=== PATIENT | male | born 1975 | race Caucasian/White ===

== ENCOUNTER → 2016-07-21 | Outpatient (CLI) | payer OTHER ==
--- NOTE | 2016-07-22 22:34 | SLEEPHOME ---
DATE OF PROCEDURE: 07/21/2016 ORDERED BY: Genoveva Collins Diagnostic home sleep testing was performed due to concern for the obstructive sleep apnea syndrome. Home testing was done using a NOX-T3 respiratory monitoring device. Continuous record was made of pulse, oxygen saturation, chest, abdominal strain, air flow and body position. 9 hours and 59 minutes of data were reviewed. Of these, 5 hours and 5 minutes were marked as time in bed. During the interval marked time in bed, there were 249 respiratory events identified of 10 seconds in duration or greater for a respiratory event index of 49. The events were primarily obstructive. Baseline heart rate 88, pulse rate ranged 63 to 176. Baseline saturation 93%. Lowest oxygen saturation 83%. Testing was performed in both the supine and nonsupine position. IMPRESSION: Abnormal home sleep testing with repetitive respiratory events and oxygen desaturations to 83% with a respiratory event index of 49 is consistent with the obstructive sleep apnea syndrome. RECOMMENDATION: The patient should be referred for formal sleep evaluation and in laboratory pressure titration. Copy To: Dr. Russell Miranda
== END | disposition home or self-care (01) ==
LOC: M SLEEP 09:13
PROVIDERS: ATTEND Nurse Practitioner Adult Health
DX: G47.9 Sleep disorder, unspecified (principal)

== ENCOUNTER → 2020-09-10 | Outpatient (CLI) | payer OTHER ==
[~2020-09-10] MED LIST: GASTROGRAFIN SOLUTION 30ML (Q9963) As Ordered ONE; ISOVUE-370 76% 100ML VIAL As Ordered ONE
--- NOTE | 2020-09-12 07:30 | REP ---
INDICATION: INCISIONAL HERNIA WITHOUT OBSTRUCTIO, ADRENAL MASS. COMPARISON: 06/06/2015 TECHNIQUE: Axial contrast-enhanced images from the lung bases to the pubic symphysis using 100 cc Isovue 370 intravenous contrast material. Precontrast and delayed images of the abdomen obtained along with coronal and sagittal reformations. This CT examination was performed using the following dose reduction techniques: Automated exposure control, adjustment of mA and/or kv according to the patient's size, and the use of iterative reconstruction technique. FINDINGS: The spleen, pancreas, gallbladder, right adrenal gland and kidneys are normal. 2.2 cm left adrenal lesion demonstrates enhancement and washout characteristics confirming adenoma. Liver demonstrates diffuse hepatosteatosis. Midline fat containing ventral hernia with small amount of subcutaneous infiltration and granulomatous changes suggesting chronic postsurgical process. No associated acute inflammatory changes are suggested. The enteric system including stomach, small, and large bowel appears normal. No evidence for obstruction or acute inflammatory process. Normal terminal ileum and appendix are identified in the right lower quadrant. Diffuse diverticulosis noted along with evidence for prior partial sigmoid resection. Pelvis demonstrates normal bladder and age-appropriate prostate/seminal vesicles. No ascites. No free air. No intraperitoneal or retroperitoneal adenopathy. Abdominal aorta and vasculature appear normal. Musculoskeletal structures are intact and without acute osseous abnormality. IMPRESSION: No acute abdominopelvic pathology appreciated. Benign left adrenal adenoma. Diverticulosis without acute diverticulitis. Postsurgical changes involving the midline anterior abdominal wall including small ventral hernia. <Electronically signed by Nestor Gilbert > 09/12/20 [id number]
== END ==
LOC: M RAD 15:26
PROVIDERS: ATTEND Surgery
DX: K43.2 Incisional hernia without obstruction or gangrene (principal); D44.10 Neoplasm of uncertain behavior of unspecified adrenal gland; D35.00 Benign neoplasm of unspecified adrenal gland
CPT/HCPCS: 74178; Q9963; Q9967

== ENCOUNTER → 2020-12-03 | Outpatient (CLI) | payer OTHER ==
[~2020-12-03] MED LIST changes: +AMLO1TAB25 PO; +ATOR40TA75 PO; -GASTROGRAFIN SOLUTION 30ML (Q9963) As Ordered ONE; -ISOVUE-370 76% 100ML VIAL As Ordered ONE; +OMEP-221 PO; +ZOLO100T PO
== END ==
LOC: M LABSMTC 09:34
PROVIDERS: ATTEND Anesthesiology
DX: Z01.818 Encounter for other preprocedural examination (principal); Z11.52 Encounter for screening for COVID-19

== ENCOUNTER 2020-12-05 13:21 | Inpatient (IN) | payer OTHER ==
[~2020-12-05] VITALS: Ht 172.7 cm; Wt 101.5 kg
[2020-12-05 14:38] LABS: HEMATOCRIT 42.9 % (42.0-52.0); HEMOGLOBIN 15.3 g/dl (13.5-17.5); MEAN CORPUSCULAR HEMOGLOBIN 30.7 pg (27.0-33.0); MEAN CORPUSCULAR HGB CONC 35.7 g/dl (32.0-36.5); PLATELET COUNT, AUTOMATED 258 10^3/uL (150-450); RED BLOOD COUNT 4.99 10^6/uL (4.30-6.10); WHITE BLOOD COUNT 10.9 10^3/uL (4.0-10.0)
[2020-12-05 14:57] LABS: ATYPICAL LYMPH 1 % (0-5); LYMPHOCYTES 23 % (16-44); MONOCYTES 1 % (0-5); NEUTROPHILS 72 % (28-66)
[2020-12-05 14:58] LABS: PLATELET ESTIMATE NORMAL (NORMAL)
[2020-12-05 15:03] LABS: ALBUMIN 3.9 GM/DL (3.2-5.2); ALT/SGPT 37 U/L (12-78); BILIRUBIN,DIRECT < 0.1 MG/DL (0.0-0.2); BILIRUBIN,TOTAL 0.5 MG/DL (0.2-1.0); BLOOD UREA NITROGEN 12 MG/DL (7-18); CALCIUM LEVEL 9.1 MG/DL (8.5-10.1); CARBON DIOXIDE LEVEL 25 MEQ/L (21-32); CHLORIDE LEVEL 102 MEQ/L (98-107); GLOMERULAR FILTRATION RATE > 60.0 (>60); GLUCOSE, FASTING 216 MG/DL (70-100); LIPASE 110 U/L (73-393); POTASSIUM SERUM 4.3 MEQ/L (3.5-5.1); SODIUM LEVEL 136 MEQ/L (136-145); TOTAL PROTEIN 7.9 GM/DL (6.4-8.2)
[2020-12-05] MEDS ORDERED: ISOVUE-370 76% 100ML VIAL As Ordered ONE (16:39)
[2020-12-05] MEDS ORDERED: NS 1,000 ML IV ONE (16:40)
[2020-12-05] MEDS ORDERED: KETOROLAC 30 MG/ML 1ML VIAL IV ONE (16:40)
[2020-12-05] MEDS ORDERED: PANTOPRAZOLE 40MG VIAL (C9113 PER 1) IV ONE (16:40)
--- NOTE | 2020-12-05 18:14 | REPVR ---
PROCEDURE INFORMATION: Exam: CT Abdomen And Pelvis With Contrast Exam date and time: 12/05/2020 5:08 PM Age: 45 years old Clinical indication: Abdominal pain; Additional info: Abdominal pain rlq/ hernias TECHNIQUE: Imaging protocol: Computed tomography of the abdomen and pelvis with contrast. Radiation optimization: All CT scans at this facility use at least one of these dose optimization techniques: automated exposure control; mA and/or kV adjustment per patient size (includes targeted exams where dose is matched to clinical indication); or iterative reconstruction. Contrast material: ISOVUE 370; Contrast volume: 100 ml; Contrast route: INTRAVENOUS (IV); COMPARISON: CT ABD PELVIS W/O FOL BY WIT 09/10/2020 5:12 PM FINDINGS: Liver: Diffuse hepatic steatosis. Tiny cyst in the left hepatic lobe, unchanged. Gallbladder and bile ducts: Unremarkable. No calcified stones. No ductal dilation. Pancreas: Unremarkable. No ductal dilation. Spleen: Unremarkable. No splenomegaly. Adrenal glands: Left adrenal adenomas, unchanged. Unchanged appearance to the right adrenal gland. Kidneys and ureters: Right renal cyst. No right renal stone or hydronephrosis. Normal left kidney and left ureter. Stomach and bowel: Rectosigmoid anastomosis, unchanged. Colonic diverticulosis without diverticulitis. No colitis. The stomach is unremarkable. Appendix: No evidence of appendicitis. Intraperitoneal space: Unremarkable. No free air. No significant fluid collection. Vasculature: Mild atherosclerosis of the abdominal aorta and iliac arteries. No aneurysm. Lymph nodes: Unremarkable. No enlarged lymph nodes. Urinary bladder: Unremarkable as visualized. Reproductive: Unremarkable as visualized. Bones/joints: No acute fracture. Soft tissues: Midline laparotomy scar. Multiple ventral abdominal wall hernias to the left of the midline scar containing fat. There is a right-sided anterior abdominal wall hernia located at the medial margin of the right rectus abdominus muscle (axial images 112 through 119). There is an approximate 8 cm long segment of mid small bowel protruding through the hernia. There are multiple loops of mildly distended small bowel containing fluid levels and mild mesenteric edema proximal to the hernia. The small bowel distal to the hernia contains fecalized material and is relatively decompressed. The hernia is estimated to be located approximately 13 cm above the level of the pubic symphysis and approximately at the level of the anterior superior iliac spine. IMPRESSION: 1. Anterior abdominal wall hernia, located to the right of midline containing a short segment of mid small bowel. 2. Findings consistent with small bowel obstruction with changes suspicious for mild small bowel ischemic change. 3. Other nonemergent findings as described above. COMMENTS: Consistent with the [employer]'s Incidental Findings Committee white paper (J Am Juan Radiol 2018): Any incidental renal lesion less than 1 cm or classified as too small to characterize, or any incidental cystic renal lesion characterized as simple-appearing, is likely benign. No follow-up imaging is recommended for these lesions per consensus recommendations based on imaging criteria. Electronically signed by: Popeye Shore On 12/05/2020 18:14:31 PM
[2020-12-05] MEDS ORDERED: MORPHINE 4 MG/ML 1ML VIAL/SYRINGE (J2270) IV ONE (18:35)
[2020-12-05] MEDS ORDERED: ONDANSETRON 4MG/2ML VIAL IV PRN (19:15)
[2020-12-05] MEDS ORDERED: MOM 30ML SUSPENSION UDC PO PRN (19:15)
[2020-12-05] MEDS ORDERED: PIPERACILLIN/TAZOBACTAM SOD 3.375 GM in D5W MINI-BAG PLUS 50 ML IV ONE (19:35)
[2020-12-05] MEDS: NS 1,000 ML IV SCH (20:03)
[2020-12-05 21:30] VITALS: BP 138/98
[2020-12-05] MEDS: MORPHINE 2 MG/ML 1ML VIAL (J2270) IV PRN (21:54)
[2020-12-05] MEDS: SENOKOT S TAB PO SCH (21:55)
[2020-12-06 00:03] LABS: HEPATITIS C VIRUS ABY INDEX < 0.0 INDEX (<0.8); HIV 1&2 SCREEN CENTAUR NEGATIVE (NEGATIVE)
[2020-12-06] MEDS: PIPERACILLIN/TAZOBACTAM SOD 3.375 GM in D5W MINI-BAG PLUS 50 ML IV SCH ×4 (02:48→20:39)
[2020-12-06] MEDS: NS 1,000 ML IV SCH ×3 (02:48→17:54)
[2020-12-06] MEDS: MORPHINE 2 MG/ML 1ML VIAL (J2270) IV PRN ×5 (02:48→22:26)
[2020-12-06] MEDS: KETOROLAC 30 MG/ML 1ML VIAL IV PRN ×3 (05:48→20:40)
[2020-12-06 06:00] VITALS: BP 152/100
[2020-12-06 07:23] LABS: HEMATOCRIT 40.5 % (42.0-52.0); MEAN CORPUSCULAR HEMOGLOBIN 29.7 pg (27.0-33.0); MEAN CORPUSCULAR HGB CONC 34.6 g/dl (32.0-36.5); PLATELET COUNT, AUTOMATED 207 10^3/uL (150-450); RED BLOOD COUNT 4.71 10^6/uL (4.30-6.10); WHITE BLOOD COUNT 8.8 10^3/uL (4.0-10.0)
[2020-12-06 07:47] LABS: BLOOD UREA NITROGEN 7 MG/DL (7-18); CALCIUM LEVEL 8.5 MG/DL (8.5-10.1); CARBON DIOXIDE LEVEL 25 MEQ/L (21-32); CHLORIDE LEVEL 102 MEQ/L (98-107); CREATININE FOR GFR 0.66 MG/DL (0.70-1.30); GLOMERULAR FILTRATION RATE > 60.0 (>60); GLUCOSE, FASTING 139 MG/DL (70-100); POTASSIUM SERUM 3.6 MEQ/L (3.5-5.1); SODIUM LEVEL 136 MEQ/L (136-145)
[2020-12-06] MEDS: PANTOPRAZOLE 40MG VIAL (C9113 PER 1) IV SCH (08:30)
[2020-12-06] MEDS: SERTRALINE 100 MG TAB PO SCH (08:30)
[2020-12-06] MEDS: SENOKOT S TAB PO SCH ×2 (08:30→20:39)
[2020-12-06] MEDS: ATORVASTATIN 20 MG TAB PO SCH (08:31)
[2020-12-06] MEDS: MIRALAX *UNIT DOSE* 17GM PACKET PO SCH ×2 (08:35→20:39)
--- NOTE | 2020-12-06 09:18 | HPE ---
HISTORY AND PHYSICAL DATE OF ADMISSION: 12/05/2020 CHIEF COMPLAINT: Abdominal pain. HISTORY OF PRESENT ILLNESS: The patient is a 45-year-old male with a history of exploratory laparotomy in the past for a perforated bowel that resulted in colostomy followed by a colostomy reversal. He has known ventral incisional hernias that he follows up with Dr. Justice for and is apparently already on the schedule for this coming Tuesday. For the last couple of days, he has had increased pains to the right side of his abdomen just below the umbilicus. He denies nausea or vomiting. No problems with bowel movements. His last bowel movement was yesterday. He came into the emergency room due to this pain and a CT scan was done that showed all his ventral hernias again, as well as concern for possible bowel obstruction with loops of dilated bowel. He had an NG tube placed in the emergency room last evening. His pain has improved significantly. I admitted him over the phone last night and when I came in to see him this morning, he was feeling much better. His pain is completely resolved. He is still passing gas and again last bowel movement was yesterday. NG tube is in place, which had minimal output that all appears to be gastric contents at this time. No fevers. No other complaint. PAST MEDICAL HISTORY: 1. High blood pressure. 2. Hyperlipidemia. 3. Depression and anxiety. PAST SURGICAL HISTORY: 1. Hernia repair in 1994. 2. Colectomy in 2018. 3. Stomach surgery. 4. Colostomy reversal in 2019. ALLERGIES: None. HOME MEDICATIONS: Please see med rec. SOCIAL HISTORY: Smokes two cigarettes a day. Social alcohol. No drug use. FAMILY HISTORY: Non-contributory. REVIEW OF SYSTEMS: Pertinent positives and negatives as stated in the HPI. PHYSICAL EXAMINATION: GENERAL: Alert and oriented x3. In no acute distress. VITAL SIGNS: Temperature 97.4, pulse 83, respirations 18, blood pressure 152/100, pulse ox 96% on room air. HEENT: Pupils equal, round, reactive to light and accommodation. HEART: S1, S2. Regular rate and rhythm. LUNGS: Clear to auscultation bilaterally. ABDOMEN: Soft, nontender, and nondistended. There are palpable reducible hernias along the anterior abdominal wall multiple along the midline and a small one along the right rectus sheath. No palpable masses or concerns for incarcerated or strangulated hernias and again no pain to any palpation. EXTREMITIES: No clubbing, cyanosis, or edema. LABORATORY DATA: White count 10.9 on admission down to 8.8 this morning. Hemoglobin 14, platelets 207,000. Potassium 3.6, creatinine 0.66. Lactic acid 1.7 last evening. IMAGING DATA: CT abdomen and pelvis done that showed an anterior abdominal wall hernia to the right of midline containing a short segment of mid small bowel. Findings consistent with small bowel obstruction with changes suspicious for mild small bowel ischemic change. No other emergent findings. ASSESSMENT AND PLAN: The patient is a 45-year-old male with multiple ventral incisional hernias, one of which contains a small segment of small intestine. There are some air fluid levels and dilated loops of small bowel in the intestine as well. However, this morning, he feels significantly improved, his pain is gone, his labs have improved, and nasogastric (NG) tube output has been minimal. My plan will be to remove his NG tube this morning, put him on a clear liquid diet, as well as some laxatives. There is no doubt that he does have these hernias in place. He also has likely a large amount of scarring and adhesions inside the abdomen. His pain could have been secondary to the hernia versus just the adhesions. I will plan to keep him over the weekend, keep him stable, and he can resume with his surgery on Tuesday with Dr. Justice.
[2020-12-06 22:00] VITALS: BP 137/82
[2020-12-07] MEDS: MORPHINE 2 MG/ML 1ML VIAL (J2270) IV PRN ×3 (03:01→18:49)
[2020-12-07] MEDS: PIPERACILLIN/TAZOBACTAM SOD 3.375 GM in D5W MINI-BAG PLUS 50 ML IV SCH ×4 (03:01→21:02)
[2020-12-07] MEDS: NS 1,000 ML IV SCH ×3 (03:15→18:49)
[2020-12-07 06:00] VITALS: BP 125/76
[2020-12-07 06:33] LABS: HEMATOCRIT 39.4 % (42.0-52.0); HEMOGLOBIN 13.6 g/dl (13.5-17.5); MEAN CORPUSCULAR HEMOGLOBIN 29.5 pg (27.0-33.0); MEAN CORPUSCULAR HGB CONC 34.5 g/dl (32.0-36.5); MEAN CORPUSCULAR VOLUME 85.5 fl (80.0-96.0); PLATELET COUNT, AUTOMATED 198 10^3/uL (150-450); RED BLOOD COUNT 4.61 10^6/uL (4.30-6.10); WHITE BLOOD COUNT 8.2 10^3/uL (4.0-10.0)
[2020-12-07 06:55] LABS: BLOOD UREA NITROGEN 5 MG/DL (7-18); CARBON DIOXIDE LEVEL 24 MEQ/L (21-32); CHLORIDE LEVEL 106 MEQ/L (98-107); CREATININE FOR GFR 0.62 MG/DL (0.70-1.30); GLOMERULAR FILTRATION RATE > 60.0 (>60); GLUCOSE, FASTING 143 MG/DL (70-100); POTASSIUM SERUM 3.7 MEQ/L (3.5-5.1); SODIUM LEVEL 138 MEQ/L (136-145)
--- NOTE | 2020-12-07 08:00 | IPNPDOC ---
Text Note Date of Service The patient was seen on 12/07/20. NOTE No acute events overnight. He denies any problems with pains this am. He is t olerating clq diet without any nausea, emesis, or fevers. He is passing lots of gas, no BM yet. VSSAF NAD abd - soft, nt, nd, multiple abd wall hernias are soft and reducible labs - below A) 45y/o male s/p partial SBO likely secondary to both adhesions and ventral hernias that has resolved P) full liquid diet NPO after midnight amb in [place] for hernia repair in the am with Dr. Reshma Hollingsworth DO VS,Samra, I+O VS, Samra, I+O Laboratory Tests 12/07/20 06:19 Vital Signs Date Time Temp Pulse Resp B/P (MAP) Pulse Ox O2 Delivery O2 Flow Rate FiO2 12/07/20 06:00 98.4 63 20 125/76 (92) 96 Room Air I&O- Last 24 Hours up to 6 AM 12/07/20 06:00 Intake Total 3285 ml Balance 3285 ml CECE HOLLINGSWORTH DO Dec 07, 2020 08:00
[2020-12-07] MEDS ORDERED: MAGNESIUM CITRATE 300 ML BTL PO ONE (09:00)
[2020-12-07] MEDS: MIRALAX *UNIT DOSE* 17GM PACKET PO SCH ×2 (09:04→21:01)
[2020-12-07] MEDS: SERTRALINE 100 MG TAB PO SCH (09:04)
[2020-12-07] MEDS: SENOKOT S TAB PO SCH ×2 (09:04→21:01)
[2020-12-07] MEDS: ATORVASTATIN 20 MG TAB PO SCH (09:08)
[2020-12-07] MEDS: PANTOPRAZOLE 40MG VIAL (C9113 PER 1) IV SCH (09:08)
[2020-12-07] MEDS: KETOROLAC 30 MG/ML 1ML VIAL IV PRN ×2 (13:28→21:01)
[2020-12-07 14:00] VITALS: BP 125/78
[2020-12-07 22:00] VITALS: BP 132/85
[2020-12-08] MEDS: MORPHINE 2 MG/ML 1ML VIAL (J2270) IV PRN (00:17)
[2020-12-08] MEDS: NS 1,000 ML IV SCH ×3 (02:52→19:40)
[2020-12-08] MEDS: PIPERACILLIN/TAZOBACTAM SOD 3.375 GM in D5W MINI-BAG PLUS 50 ML IV SCH ×4 (02:52→15:16)
[2020-12-08 06:16] VITALS: BP 119/76
[2020-12-08 06:52] LABS: HEMATOCRIT 43.7 % (42.0-52.0); HEMOGLOBIN 14.6 g/dl (13.5-17.5); MEAN CORPUSCULAR HGB CONC 33.4 g/dl (32.0-36.5); MEAN CORPUSCULAR VOLUME 86.7 fl (80.0-96.0); PLATELET COUNT, AUTOMATED 230 10^3/uL (150-450); RED BLOOD COUNT 5.04 10^6/uL (4.30-6.10)
[2020-12-08 07:06] LABS: BLOOD UREA NITROGEN 4 MG/DL (7-18); CALCIUM LEVEL 8.7 MG/DL (8.5-10.1); CARBON DIOXIDE LEVEL 26 MEQ/L (21-32); CHLORIDE LEVEL 104 MEQ/L (98-107); GLOMERULAR FILTRATION RATE > 60.0 (>60); GLUCOSE, FASTING 126 MG/DL (70-100); POTASSIUM SERUM 3.8 MEQ/L (3.5-5.1); SODIUM LEVEL 137 MEQ/L (136-145)
[2020-12-08] MEDS ORDERED: dexameTHASONE 4 MG/ML 1ML VIAL (J1100 PER 1MG) ONE (07:17)
[2020-12-08] MEDS ORDERED: LACRILUBE (AKWA TEARS) OPHTH OINT 3.5 GM ONE (07:17)
[2020-12-08] MEDS ORDERED: ROCURONIUM BROMIDE 50 MG/5 ML VIAL ONE ×5 (07:18→15:18)
[2020-12-08] MEDS ORDERED: LIDOCAINE 2% 100MG/5ML SDV (FOR ANES.) ONE (07:18)
[2020-12-08] MEDS ORDERED: propofoL 200 MG/20 ML VIAL ONE (07:18)
[2020-12-08] MEDS ORDERED: ONDANSETRON 4MG/2ML VIAL ONE (07:19)
[2020-12-08] MEDS ORDERED: MIDAZOLAM INJ 2MG/2ML VIAL (J2250 PER 1MG) ONE (07:19)
[2020-12-08] MEDS ORDERED: KETAMINE HCL 200 MG/20 ML VIAL ONE (07:19)
[2020-12-08] MEDS ORDERED: fentaNYL 100 MCG/2 ML INJECTION (J3010) ONE ×3 (07:19→17:36)
[2020-12-08] MEDS ORDERED: HEPARIN SOD (PORCINE) 5000UNITS/ML 1ML VIAL/SYRINGE ONE (07:42)
[2020-12-08] MEDS ORDERED: ceFAZolin 2 GM/D5W 50 ML IV BAG (J0690 PER 500MG) ONE (07:42)
[2020-12-08] MEDS ORDERED: HEPARIN SOD (PORCINE) 5000UNITS/ML 1ML VIAL/SYRINGE SQ ONE (07:55)
[2020-12-08] MEDS ORDERED: CelecoXIB 400 MG CAP PO ONE (07:55)
[2020-12-08] MEDS ORDERED: ceFAZolin SOD 2 GM in IV 1 EA IV ONE (07:55)
[2020-12-08] MEDS ORDERED: ACETAMINOPHEN 1000MG 100ML IV BTL (OFIRMEV) (J0131 PER 10MG) ONE ×2 (08:22→13:24)
[2020-12-08] MEDS ORDERED: METOCLOPRAMIDE INJ 10MG/2ML VIAL (J2765 PER 1) ONE (08:59)
[2020-12-08] MEDS ORDERED: SUGAMMADEX SODIUM 500 MG/5 ML VIAL (BRIDION) ONE (08:59)
[2020-12-08] MEDS ORDERED: KETOROLAC 60MG 2ML VIAL ONE (08:59)
[2020-12-08] MEDS: SENOKOT S TAB PO SCH ×2 (09:00→21:37)
[2020-12-08] MEDS: ATORVASTATIN 20 MG TAB PO SCH (09:00)
[2020-12-08] MEDS: MIRALAX *UNIT DOSE* 17GM PACKET PO SCH (09:00)
[2020-12-08] MEDS: SERTRALINE 100 MG TAB PO SCH (09:00)
[2020-12-08] MEDS: PANTOPRAZOLE 40MG VIAL (C9113 PER 1) IV SCH (09:00)
[2020-12-08] MEDS ORDERED: HYDROmorphone HCL 2 MG/ML 1ML VIAL (J1170) ONE (09:39)
[2020-12-08] MEDS ORDERED: GLYCOPYRROLATE INJ 0.2 MG/ML 2 ML VIAL ONE (10:22)
[2020-12-08] MEDS ORDERED: ePHEDrine SULFATE 25 MG/5 ML(5MG/ML) SYRINGE ONE (11:04)
[2020-12-08] MEDS ORDERED: PHENYLephrine 500MCG 5ML (100MCG/ML) SYRINGE ONE ×2 (11:04→15:20)
[2020-12-08] MEDS ORDERED: ALBUTEROL 6.7GM INHALER **FOR ANES. CART/OMNICELL ONLY ONE (11:10)
[2020-12-08] MEDS ORDERED: ZOSYN 3.375GM VIAL (J2543) ONE (15:09)
[2020-12-08] MEDS ORDERED: LABETALOL 100MG/20ML VIAL ONE (17:18)
[2020-12-08] MEDS ORDERED: BUPIVACAINE HCL 0.25% 10ML VIAL As Ordered ONE (17:34)
[2020-12-08] MEDS ORDERED: LIDOCAINE 1% SDV 30ML VIAL As Ordered ONE (17:34)
[2020-12-08] MEDS ORDERED: ONDANSETRON 4MG/2ML VIAL IV PRN (17:35)
[2020-12-08] MEDS ORDERED: fentaNYL 100 MCG/2 ML INJECTION (J3010) IV PRN (17:35)
[2020-12-08] MEDS ORDERED: BUPIVACAINE LIPOSOME/PF 1.3% 20ML VIAL (13.3MG/ML)(EXPAREL)(C9290 PER1MG) As Ordered ONE (17:35)
[2020-12-08] MEDS ORDERED: PERCOCET 5MG/325MG TAB PO PRN (17:35)
[2020-12-08] MEDS ORDERED: ZOSYN 3.375GM VIAL (J2543) As Ordered ONE (17:35)
[2020-12-08] MEDS ORDERED: oxyCODONE 5MG TAB PO PRN (17:35)
[2020-12-08] MEDS ORDERED: METOCLOPRAMIDE INJ 10MG/2ML VIAL (J2765 PER 1) IV PRN (17:35)
[2020-12-08] MEDS ORDERED: BUPIVACAINE HCL 0.25% 30ML VIAL As Ordered ONE (17:35)
[2020-12-08] MEDS ORDERED: LR 1,000 ML IV SCH (17:35)
[2020-12-08] MEDS ORDERED: HYDROMORPHONE HCL 0.5 MG/ 0.5 ML SYRINGE (J1170 PER 1) IV PRN (17:35)
[2020-12-08] MEDS: KETOROLAC 30 MG/ML 1ML VIAL IV SCH (18:00)
[2020-12-08 19:20] VITALS: BP 128/83
[2020-12-08 20:00] VITALS: BP 126/83
[2020-12-08 21:32] VITALS: BP 143/88
[2020-12-08] MEDS: MORPHINE 4 MG/ML 1ML VIAL/SYRINGE (J2270) IV PRN (21:38)
[2020-12-08 22:47] VITALS: BP 141/89
[2020-12-08 23:30] VITALS: BP 138/82
[2020-12-09] MEDS: KETOROLAC 30 MG/ML 1ML VIAL IV SCH ×5 (00:09→23:29)
[2020-12-09 00:30] VITALS: BP 144/82
[2020-12-09 02:13] VITALS: BP 143/91
[2020-12-09] MEDS: MORPHINE 4 MG/ML 1ML VIAL/SYRINGE (J2270) IV PRN (02:20)
[2020-12-09] MEDS: NS 1,000 ML IV SCH ×2 (03:15→11:15)
[2020-12-09 06:00] VITALS: BP 141/91
[2020-12-09 07:28] LABS: HEMATOCRIT 37.7 % (42.0-52.0); MEAN CORPUSCULAR HEMOGLOBIN 29.7 pg (27.0-33.0); MEAN CORPUSCULAR HGB CONC 34.5 g/dl (32.0-36.5); MEAN CORPUSCULAR VOLUME 86.3 fl (80.0-96.0); PLATELET COUNT, AUTOMATED 215 10^3/uL (150-450); RED BLOOD COUNT 4.37 10^6/uL (4.30-6.10); WHITE BLOOD COUNT 11.7 10^3/uL (4.0-10.0)
[2020-12-09 07:53] LABS: BLOOD UREA NITROGEN 6 MG/DL (7-18); CALCIUM LEVEL 8.6 MG/DL (8.5-10.1); CARBON DIOXIDE LEVEL 26 MEQ/L (21-32); CHLORIDE LEVEL 106 MEQ/L (98-107); CREATININE FOR GFR 0.69 MG/DL (0.70-1.30); GLOMERULAR FILTRATION RATE > 60.0 (>60); GLUCOSE, FASTING 123 MG/DL (70-100); POTASSIUM SERUM 3.7 MEQ/L (3.5-5.1); SODIUM LEVEL 138 MEQ/L (136-145)
--- NOTE | 2020-12-09 08:15 | ROOPDOC ---
[facility] Report Of Operation Report of Operation DATE OF PROCEDURE: 12/08/20 PREPROCEDURE DIAGNOSES: large midline and llq incisional hernia, diastatic healing of midline incision, small bowel obstruction. POSTPROCEDURE DIAGNOSES: large, multiple liberian-cheese midlien incisional hernia, diastatic rectus muscle,multiple small bowel adhesions. PROCEDURE: Robotic assisted, etep access, laparoscopic [place] Stoppa repair of multiple incisional hernias, closure of rectus diastasis, bilateral transversus abdominis release. SURGEON: Leonid Justice MD CRAB BACKER: ANESTHESIA: General Endotracheal Anesthesia. ESTIMATED BLOOD LOSS: Approximately 100 mL. COMPLICATIONS: none. REMARKS: 45 male with large bulging incisional hernias at the lowe midline from prior laparotomy incision, ostomy incision from perforated diverticulitis and ostomy closure with associated discomfort. He was scheduled for the surgery but admitted over the weekend for bowel obstruction related to the hernias. PROCEDURE NOTE: multiple midline incisional hernias encompassing the midline laparotomy incision, smaller llq ostomy hernia, diastases of the rectus muscle from its attachment to the symphysis pubis up to the top of the incision. Internally measures 11 cms transversely at the greatest diastases/hernia defect, 23 cms vertically from the symphysis pubis to the top of the incision.. DESCRIPTION OF PROCEDURE: Patient was given a dose of Ancef 2 g IV preoperatively for wound prophylaxis. This was redosed every 4 hours. He was brought to the operating room, placed supine on the table. Compression boots placed on bilateral lower extremities for DVT prophylaxis. General endotracheal anesthesia then started. A Johnson catheter was placed for urine output monitoring. His abdomen was then widely prepped and draped in usual sterile fashion. The bed was flexed to increase the space in between his costal cartilage and anterior superior iliac spine. Both arms were tucked.We paused for a surgical timeout using both pre-incision safety checklist to verify correct patient, procedure site and additional clinical information prior to beginning the procedure I marked all the skin/scar tissue in his abdomen with specific attention to the midline laparotomy incision and prior ostomy site over the left lower quadrant area. He has a large bulging below the umbilicus with a bulge slightly towards the right side of the midline. He has thin skin over the scar and wide diastases of the midline rectus especially at the lower abdomen. Since patient was admitted with bowel obstruction, I decided to take a look inside the abdomen first before starting my ventral hernia repair as I was planning for an eTep approach. I placed a Veress needle however the patient's left upper quadrant subcostal area to insufflate the abdomen to a pressure of 15 mmHg. I then placed a 5 mm optical trocar guided by a laparoscope through to the abdomen. He was placed on the Trendelenburg position and examined the abdomen. There were moderate amounts of both omental as well as bowel adhesions to the midline abdominal scar. There are multiple hernia defects but none of them were inside of the hernia defects and all were reduced in the abdomen. There was some flattened loops of bowel, unclear whether small or large bowel inferior to the larger defect below the umbilicus which was a thickened loop of bowel on CT. There is no evidence of any ischemia or perforation. There is no free fluid. There is a widened diastases of the rectus muscle down to the symphysis pubis creating a big cavity on the inferior abdomen causing the bowing of the abdomen and a large bulging that he is experiencing. At this point the abdominal cavity was decompressed and they proceeded with my ventral hernia repair. I started with the left upper quadrant entry medial to the left semilunar line. After creating a small incision the, CanDiagi Fios 5 mm optical port was placed in through to the retro-muscular plane on the left upper quadrant under direct vision of a 5 mm laparoscope. Insufflation and started to a pressure of 15 mmHg to separate the rectus muscle from the posterior sheath. I continued with blunt dissection to create space inferior to our entry. For some reason, the area underneath the left rectus, I find to not have an ample amount of space despite measuring more than [address] I work through this and once an adequate space about 8-10 cm inferiorly was created an 8 mm robotic trocar was placed under direct vision of the laparoscope. Using this as my instrument port site used a laparoscopic scissors connected to a monopolar cautery to continue inferior dissection down to the level of the pubic tubercle. Another 8 mm robotic trocar was placed under direct vision about 8-10 cm below the second port. The original 5 mm port was exchanged for an 8 mm robotic trocar. I completed the dissection of the left retro-muscular plane by freeing up the area superior to our initial entry. The da Griselda robot was then positioned in place and the trochars duct to the robot. I used a 8 mm camera pointed upwards, laparoscopic scissors as well as a forced bipolar instrument for the procedure. I then scrubbed in to control of the camera and instruments at the surgeon's console. As there was not a good amount of retromuscular space, I had difficulty maneuvering my instruments at the onset. I further develop the left retro- muscular plane to the level of the linea alba. I then immediately crossed over just above the level of the falciform ligament. The posterior sheath was divided about 1 cm from the left linea alba margin to enter the preperitoneal plane above the falciform ligament. This was brought down and immediately proceeded opening up the medial margin of the right posterior sheath to preserve and create more space for working. The 3 spaces were then connected and proceeded slowly going down inferiorly to the level of the top portion of the highest incisional hernia which is above the level of the umbilicus. I tried to preserve the peritoneum/hernia sac to help with closure of the posterior sheath but this was quite thin and then eventually entered the abdominal cavity. This allowed me a better view of the involved bowels underneath though it did collapse my space a little bit. I proceeded working on the adhered portions of the bowel close to the main hernia defect. This was sharply lysed under direct vision. Several omental adhesions at the midline was also brought down. There is another loop of collapsed small bowel further down that I took down. All remaining abdominal wall adhesions of the omentum was taken down. The area most accessible is the right retromuscular space so I proceeded going down further to bring down the urinary bladder entering the space of Retzius. The dissection proceeded below the pubic tubercle and then laterally. The internal ring of the inguinal canal was reached and there is a small amount of cord lipoma at the area which was brought down. I then proceeded laterally to the right space of [place] bringing this down laterally and going up towards the arcuate line. I then started my bottoms up TAR, by creating a retropreperitoneal abdominal lateral to the semilunar line to further develop the area. The fibrous portion of the transversus abdominis muscle at this area was then divided medial to the semilunar line, medial to the neurovascular bundles that was entering posterior to the rectus muscles. When the tissues were more difficult to define I then switched to a top down transversus abdominis release starting at the right upper quadrant were the more muscular transversus muscles were located. I started medial to the semilunar line as defined by the neurovascular bundles. The inferior lamella of the internal oblique was opened revealed the transversus abdominis muscle. This was then divided to enter the pretransversalis plane and this was further developed mostly with blunt dissection laterally. I proceeded going inferiorly to connect the inferior and superior dissection. After connecting all this 3 spaces I proceeded going inferiorly to the level of the hernia defect just about the level of the umbilicus. I further develop the margins of the left linea alba plain to the pubic tubercle. Again the space above the umbilical ligaments were opened up and developed to encircle our hernia defect. I tried to conserve some of the hernia sac for later closure of the posterior sheath. Once I entered the abdominal cavity was easier to come around the hernia defect. The rest of the right side retro-muscular plane was then further developed to the right semilunaris line delineated by the presence of the neurovascular bundles on the side which were preserved. After this the dimensions of the hernia was measured to be 5 x 4 cm. The cavity has some honeycombing effect and extends to the thinned out skin. A small amount of the hernia sac on the left side was preserved but most of the hernia sac remained intact. I then switched the camera to the downward view and evaluated my posterior sheath. The midline defect seems to come together well without much tension. This was closed with a running suture of a 2-0V LOC. The preservation some of the hernia sac allowed for easier closure of the posterior sheath. I surveyed the posterior sheath for any holes in them as well as for proper hemostasis. I then again switched view looking up towards the hernia defects/anterior sheath was then closed using an 18 inch 0 nonabsorbable V LOC. I started well below the hernia defect to the confluence of the linea alba going up towards the hernia defect. With closure of the hernia the hernia sac was also plicated with the closure to close the space within the hernia itself. I used a total of 318 inch V LOC to close the hernia defect likewise the diastases up above the hernia defect though I did not proceed much further than 10 cm above the defect with the plication of the diastases. With this performed I scrubbed back in. I measured the dimensions of the retro- muscular space to be 25 x 20 cm. I chose a 30 x 30 cm uncoated midweight polypropylene mesh and trimmed this to the proper size and configuration. We resumed laparoscopically and remove the robot from the field. The mesh was introduced to the retro-muscular space and unrolled to cover the whole space. I did not put any suture fixation symphysis was well accommodated into the space. Tisseel fibrin glue was used both to temporarily fix the mesh to the floor and keep this flattened as well as for hemostasis. I again surveyedand once satis fied this was deflated. The skin incisions were closed with 4-0 Monocryl in subcuticular fashion. No drains were left in place. Dermabond glue was used to cover the skin incision. Patient tolerated the procedure well. She was promptly awakened, extubated and brought to the recovery room in stable condition LEONID JUSTICE MD Dec 09, 2020 08:15
--- NOTE | 2020-12-09 08:40 | IPNPDOC ---
Text Note Date of Service The patient was seen on 12/09/20. NOTE General Surgery. Dr. Justice The patient is a 45-year-old male status post robotic-assisted laparoscopic incisional hernia repair as per Dr. Justice 12/08/20. This morning, the patient is resting in bed. He states pain has been reasonably controlled. He is tolerating clear liquids. He did have 1 dose of morphine at 2 AM. Toradol at 5:45 AM. He has not used any Percocet. Afebrile. VSS. 94% 2 L nasal cannula. General. Awake and alert, no acute distress Moist mucous membranes S1 and S2 regular rate rhythm Lungs with good air entry, few rales at the bases Abdomen is obese, mildly distended, dressings over her surgical incisions with no drainage noted, midline incision with wound VAC intact, MAI drain 2 with serosanguineous drainage. Extremities. No edema. I/O 3200/845 +2355 MAI drain left abdomen 50 mL, right abdomen 30 mL. Assessment/plan 45-year-old male status post robotic-assisted laparoscopic incisional hernia repair as per Dr. Justice 12/08/20. The patient is reviewed with Dr. Justice this morning. IVF 125ml/hr The patient is tolerating clear liquids, plan to advance diet to regular diet. Encourage out of bed and ambulation. Wear abdominal binder when OOB. Discontinue Johnson catheter. Continue to monitor. VS,Fishbone, I+O VS, Fishbone, I+O Laboratory Tests 12/09/20 07:18 Vital Signs Date Time Temp Pulse Resp B/P (MAP) Pulse Ox O2 Delivery O2 Flow Rate FiO2 12/09/20 06:00 97.9 77 18 141/91 (108) 94 Nasal Cannula 2.0 I&O- Last 24 Hours up to 6 AM 12/09/20 05:59 Intake Total 3290 ml Output Total 1845 ml Balance 1445 ml Joanna Flores Dec 09, 2020 08:39
[2020-12-09] MEDS: ATORVASTATIN 20 MG TAB PO SCH (08:44)
[2020-12-09] MEDS: SERTRALINE 100 MG TAB PO SCH (08:44)
[2020-12-09] MEDS: SENOKOT S TAB PO SCH ×2 (08:44→21:18)
[2020-12-09] MEDS: PANTOPRAZOLE 40MG VIAL (C9113 PER 1) IV SCH (08:44)
[2020-12-09] MEDS: PERCOCET 5MG/325MG TAB PO PRN ×3 (08:46→18:28)
[2020-12-09 10:00] VITALS: BP 144/94
[2020-12-09 14:00] VITALS: BP 142/95
[2020-12-09 22:00] VITALS: BP 141/95
[2020-12-10] MEDS: PERCOCET 5MG/325MG TAB PO PRN ×2 (04:53→18:36)
[2020-12-10] MEDS: KETOROLAC 30 MG/ML 1ML VIAL IV SCH ×2 (05:30→13:36)
[2020-12-10 06:00] VITALS: BP 136/95
[2020-12-10 06:59] LABS: HEMATOCRIT 42.5 % (42.0-52.0); HEMOGLOBIN 14.1 g/dl (13.5-17.5); MEAN CORPUSCULAR HEMOGLOBIN 29.1 pg (27.0-33.0); MEAN CORPUSCULAR HGB CONC 33.2 g/dl (32.0-36.5); MEAN CORPUSCULAR VOLUME 87.6 fl (80.0-96.0); PLATELET COUNT, AUTOMATED 229 10^3/uL (150-450); RED BLOOD COUNT 4.85 10^6/uL (4.30-6.10); WHITE BLOOD COUNT 11.5 10^3/uL (4.0-10.0)
[2020-12-10 07:17] LABS: BLOOD UREA NITROGEN 12 MG/DL (7-18); CARBON DIOXIDE LEVEL 27 MEQ/L (21-32); CHLORIDE LEVEL 106 MEQ/L (98-107); CREATININE FOR GFR 0.65 MG/DL (0.70-1.30); GLOMERULAR FILTRATION RATE > 60.0 (>60); GLUCOSE, FASTING 154 MG/DL (70-100); POTASSIUM SERUM 3.8 MEQ/L (3.5-5.1); SODIUM LEVEL 138 MEQ/L (136-145)
[2020-12-10] MEDS: PANTOPRAZOLE 40MG VIAL (C9113 PER 1) IV SCH (09:53)
[2020-12-10] MEDS: ATORVASTATIN 20 MG TAB PO SCH (09:53)
[2020-12-10] MEDS: SENOKOT S TAB PO SCH ×2 (09:53→20:15)
[2020-12-10] MEDS: SERTRALINE 100 MG TAB PO SCH (09:53)
--- NOTE | 2020-12-10 12:50 | IPNPDOC ---
Text Note Date of Service The patient was seen on 12/10/20. NOTE General Surgery. Dr. Justice The patient is a 45-year-old male status post robotic-assisted laparoscopic incisional hernia repair as per Dr. Justice 12/08/20. This morning, the patient is OOB. He states pain has been reasonably controlled. He is tolerating reg diet. He reports flatus, small BM this AM. Afebrile. VSS. 93 % RA. General. Awake and alert, no acute distress Moist mucous membranes S1 and S2 regular rate rhythm Lungs with good air entry, few rales at the bases Abdomen is obese, mildly distended, dressings over her surgical incisions with no drainage noted, midline incision with wound VAC intact, MAI drain 2 with serosanguineous drainage. Extremities. No edema. I/O -690 MAI drain left abdomen 85 mL, right abdomen 105 mL. Assessment/plan 45-year-old male status post robotic-assisted laparoscopic incisional hernia repair as per Dr. Justice 12/08/20. The patient is reviewed with Dr. Justice this morning. The patient is tolerating regular diet. reports small BM this AM, MOM x 1 ordered today. Encourage out of bed and ambulation. Wear abdominal binder when OOB. Continue to monitor. Tentative plan for DC in AM. VS,Fishbone, I+O VS, Fishbone, I+O Laboratory Tests 12/10/20 06:27 Vital Signs Date Time Temp Pulse Resp B/P (MAP) Pulse Ox O2 Delivery O2 Flow Rate FiO2 12/10/20 09:58 16 93 Room Air 12/10/20 09:53 93 136/95 12/10/20 06:00 97.9 12/10/20 05:06 1.0 I&O- Last 24 Hours up to 6 AM 12/10/20 06:00 Intake Total 3960 ml Output Total 3435 ml Balance 525 ml Joanna Flores Dec 10, 2020 12:50
[2020-12-10 14:00] VITALS: BP 131/93
[2020-12-10 20:00] VITALS: BP 129/92
[2020-12-11] MEDS: PERCOCET 5MG/325MG TAB PO PRN ×2 (01:37→09:30)
[2020-12-11 06:00] VITALS: BP 129/81
[2020-12-11 07:06] LABS: HEMATOCRIT 41.4 % (42.0-52.0); HEMOGLOBIN 13.9 g/dl (13.5-17.5); MEAN CORPUSCULAR HEMOGLOBIN 29.3 pg (27.0-33.0); MEAN CORPUSCULAR HGB CONC 33.6 g/dl (32.0-36.5); MEAN CORPUSCULAR VOLUME 87.2 fl (80.0-96.0); PLATELET COUNT, AUTOMATED 240 10^3/uL (150-450); RED BLOOD COUNT 4.75 10^6/uL (4.30-6.10); WHITE BLOOD COUNT 10.9 10^3/uL (4.0-10.0)
[2020-12-11 07:45] LABS: BLOOD UREA NITROGEN 14 MG/DL (7-18); CALCIUM LEVEL 8.8 MG/DL (8.5-10.1); CARBON DIOXIDE LEVEL 27 MEQ/L (21-32); CHLORIDE LEVEL 106 MEQ/L (98-107); CREATININE FOR GFR 0.68 MG/DL (0.70-1.30); GLOMERULAR FILTRATION RATE > 60.0 (>60); GLUCOSE, FASTING 115 MG/DL (70-100); POTASSIUM SERUM 3.8 MEQ/L (3.5-5.1); SODIUM LEVEL 140 MEQ/L (136-145)
[2020-12-11] MEDS ORDERED: SENN-52 PO (08:46)
[2020-12-11] MEDS ORDERED: MOM30SS2 PO (08:46)
[2020-12-11] MEDS ORDERED: PERCOCET PO (08:46)
[2020-12-11] MEDS ORDERED: KETO10TAB PO (08:46)
[2020-12-11] MEDS: SENOKOT S TAB PO SCH (09:00)
[2020-12-11] MEDS: SERTRALINE 100 MG TAB PO SCH (09:27)
[2020-12-11] MEDS: ATORVASTATIN 20 MG TAB PO SCH (09:27)
[2020-12-11] MEDS: PANTOPRAZOLE 40MG VIAL (C9113 PER 1) IV SCH (09:28)
[2020-12-11 09:29] VITALS: BP 115/78
[2020-12-11 09:30] VITALS: BP 115/78
--- NOTE | 2020-12-11 09:52 | DS.PDOC ---
Discharge Summary General Date of Admission Dec 05, 2020 at 19:13 Date of Discharge 12/11/20 Discharge Summary Gen. surgery. Dr. Justice PROCEDURES PERFORMED DURING STAY: status post robotic-assisted laparoscopic incisional hernia repair as per Dr. Justice 12/08/20. ADMITTING DIAGNOSES: Multiple ventral incisional hernias/SBO Hypertension Dyslipidemia Anxiety Depression Obesity, BMI 34.0 DISCHARGE DIAGNOSES: Multiple ventral incisional hernias/SBO/status post robotic-assisted laparoscopic incisional hernia repair as per Dr. Justice 12/08/20. Hypertension Dyslipidemia Anxiety Depression Obesity, BMI 34.0 HISTORY OF PRESENT ILLNESS/HOSPITAL COURSE: The patient is a 45-year-old male with multiple prior abdominal surgeries and multiple ventral incisional hernias who was admitted with small bowel obstruction. Status post robotic-assisted laparoscopic incisional hernia repair as per Dr. Justice 12/08/20. Postoperatively the patient has recovered well. Postoperative day #1 the patient was tolerating clear liquids and was advanced to regular diet. He was encouraged to get out of bed and ambulate. Encouraged to use incentive spirometer. He is advised to wear abdominal binder when out of bed. Postoperative day #2 the patient was out of bed and ambulating in the room. Reported a small bowel movement, he was ordered bowel care. He was tolerating regular diet. Pain was reasonably controlled. I postoperative day #3 the patient felt ready for discharge and reported pain was controlled. He was eating and drinking well, he had had 3 bowel movements. Incisions were healing well, wound VAC intact over midline incision. The patient was having only a scant amount of drainage from the left abdomen MAI drain, this will be discontinued prior to discharge. The patient will discharge home with right abdomen MAI drain and will monitor how much this is straining over the next week. DISCHARGE MEDICATIONS: Please see below. ALLERGIES: Please see below. PHYSICAL EXAMINATION ON DISCHARGE: VITAL SIGNS: Please see below. GENERAL: No acute distress, out of bed sitting in chair HEENT: MMM CARDIOVASCULAR EXAMINATION: RRR RESPIRATORY EXAMINATION: CTA ABDOMINAL EXAMINATION: Soft, mild tenderness around surgical sites, wound VAC over her midline incision. MAI drain left and right lower abdomen with small amounts of serosanguineous drainage. EXTREMITIES: No edema LABORATORY DATA: Please see below. DISCHARGE PLAN: Discharge home Activity as tolerated however no heavy pushing, pulling, lifting greater than 20 pounds for 2 weeks. The patient is advised to wear abdominal binder when out of bed and that he should wear the abdominal binder for the next 6-8 weeks consistently. Regular diet The patient will have left abdomen MAI drain removed prior to discharge today, continue to keep the area clean and dry, dry dressing as needed. The patient will discharge home with right abdomen MAI drain. The patient is instructed to empty this daily and keep a log of the amount of drainage. Continue to keep area clean and dry. Wound VAC on midline incision, the patient will discharged with this. The patient is advised to return to the office next for follow-up appointment with Dr. Justice. The patient is advised to call the office with any changes or concerns, development of wound drainage, fevers, chills or increasing pain. Percocet 5/325 one tablet every 6 hours as needed. Toradol 10 mg by mouth every 8 hours as needed for pain 3 days. ITEMS TO FOLLOWUP ON ON OUTPATIENT: Wound VAC midline incision MAI drain right lower abdomen DISCHARGE CONDITION: Stable. TIME SPENT ON DISCHARGE: Greater than 30 minutes. Vital Signs/I&Os Vital Signs Date Time Temp Pulse Resp B/P (MAP) Pulse Ox O2 Delivery O2 Flow Rate FiO2 12/11/20 09:30 105 18 115/78 91 Room Air 12/11/20 06:00 97.5 12/10/20 05:06 1.0 I&O- Last 24 Hours up to 6 AM 12/11/20 05:59 Intake Total 1240 ml Output Total 0 ml Balance 1240 ml Laboratory Data Labs 24H Laboratory Tests 2 12/11/20 06:53: Nucleated Red Blood Cells % (auto) 0.0, Anion Gap 7L, Glomerular Filtration Rate > 60.0, Calcium Level 8.8 CBC/BMP Laboratory Tests 12/11/20 06:53 Discharge Medications Scheduled Amlodipine Besylate (Amlodipine Besylate) 10 Mg Tablet, 10 MG PO DAILY, (Reported) Atorvastatin Calcium (Atorvastatin Calcium) 40 Mg Tablet, 40 MG PO DAILY, (Reported) Omeprazole (Omeprazole) 40 Mg Capsule.dr, 40 MG PO DAILY, (Reported) Sennosides/Docusate Sodium (Senna Plus Tablet) 1 Each Tablet, 1 TAB PO BID Sertraline Hcl (Zoloft) 100 Mg Tablet, 100 MG PO DAILY, (Reported) Scheduled PRN Ketorolac Tromethamine (Ketorolac Tromethamine) 10 Mg Tablet, 1 TAB PO Q8HP PRN for pain Magnesium Hydroxide (Milk of Magnesia) 400 Mg/5 Ml Oral.susp, 30 ML PO DAILYPRN PRN for CONSTIPATION Oxycodone/Acetaminophen (Oxycodone-Acetaminophen 5-325) 1 Each Tablet, 1 TAB PO Q4-6HP PRN for MODERATE PAIN (PS 5-7) Allergies Coded Allergies: No Known Allergies (Unverified , 11/21/20) Joanna Flores Dec 11, 2020 09:52
== END 2020-12-11 12:20 | disposition home or self-care (01) | DRG 227 ==
LOC: M ED 13:21 → M ED INP 19:13 → ENRESERV 21:01 → M MS5PR 21:30
PROVIDERS: ADMIT Surgery; ATTEND Surgery
PROC: 8E0W4CZ Robotic Assisted Procedure of Trunk Region, Percutaneous Endoscopic Approach (ICD-10-PCS; 2020-12-08)
PROC: 0DN84ZZ Release Small Intestine, Percutaneous Endoscopic Approach (ICD-10-PCS; 2020-12-08)
PROC: 0WUF4JZ Supplement Abdominal Wall with Synthetic Substitute, Percutaneous Endoscopic Approach (ICD-10-PCS; principal; 2020-12-08 07:30)
DX: K43.0 Incisional hernia with obstruction, without gangrene (principal); E66.01 Morbid (severe) obesity due to excess calories; I10 Essential (primary) hypertension; E78.5 Hyperlipidemia, unspecified; F41.9 Anxiety disorder, unspecified; F32.9 Major depressive disorder, single episode, unspecified; F17.210 Nicotine dependence, cigarettes, uncomplicated; M62.08 Separation of muscle (nontraumatic), other site; Z98.84 Bariatric surgery status; Z68.34 Body mass index [BMI] 34.0-34.9, adult; Z79.899 Other long term (current) drug therapy; Z20.822 Contact with and (suspected) exposure to COVID-19

== ENCOUNTER 2021-01-23 12:43 | Emergency (ER) | payer OTHER ==
[~2021-01-23] VITALS: Ht 172.7 cm; Wt 97.0 kg
[~2021-01-23 12:43] MED LIST changes: +KETO10TAB PO; +MOM30SS2 PO; -OMEP-221 PO; +OMEP40CA5 PO; +PERCOCET PO; +SENN-52 PO
[2021-01-23 12:44] VITALS: BP 144/87
[2021-01-23] MEDS ORDERED: LIDOCAINE W/EPINEPHRINE 1% 20ML VIAL SC ONE (17:25)
[2021-01-23] MEDS ORDERED: CEPH500C PO (17:49)
== END 2021-01-23 17:57 | disposition home or self-care (01) ==
LOC: M ED 12:43
DX: L02.11 Cutaneous abscess of neck (principal); I10 Essential (primary) hypertension; F32.9 Major depressive disorder, single episode, unspecified; F17.200 Nicotine dependence, unspecified, uncomplicated; Z79.899 Other long term (current) drug therapy

== ENCOUNTER 2021-12-12 13:32 | Inpatient (IN) | payer OTHER ==
[~2021-12-12] VITALS: Ht 172.7 cm; Wt 97.1 kg
[~2021-12-12 13:32] MED LIST changes: +CEPH500C PO
[2021-12-12 14:29] LABS: BASO % 0.2 % (0.0-1.0); EOS % 0.1 % (0.0-3.0); HEMATOCRIT 40.1 % (42.0-52.0); HEMOGLOBIN 14.1 g/dl (13.5-17.5); LYMPH # 1.1 10^3/uL (1.5-5.0); LYMPH % 10.8 % (24.0-44.0); MEAN CORPUSCULAR HEMOGLOBIN 30.7 pg (27.0-33.0); MEAN CORPUSCULAR HGB CONC 35.2 g/dl (32.0-36.5); MEAN CORPUSCULAR VOLUME 87.2 fl (80.0-96.0); MONO # 0.7 10^3/uL (0.0-0.8); MONO % 6.5 % (2.0-8.0); NEUTROPHILS # 8.6 10^3/uL (1.5-8.5); NEUTROPHILS % 81.9 % (36.0-66.0); PLATELET COUNT, AUTOMATED 228 10^3/uL (150-450); WHITE BLOOD COUNT 10.5 10^3/uL (4.0-10.0)
[2021-12-12 14:45] LABS: INR 0.99; PROTHROMBIN TIME 13.5 SECONDS (12.7-14.5)
[2021-12-12] MEDS ORDERED: MORPHINE 4 MG/ML 1ML VIAL/SYRINGE IV ONE ×2 (14:50→18:05)
[2021-12-12 14:54] LABS: ALBUMIN 3.7 GM/DL (3.2-5.2); ALT/SGPT 32 U/L (12-78); BILIRUBIN,DIRECT 0.2 MG/DL (0.0-0.2); BILIRUBIN,TOTAL 0.4 MG/DL (0.2-1.0); BLOOD UREA NITROGEN 12 MG/DL (7-18); CALCIUM LEVEL 7.8 MG/DL (8.5-10.1); CARBON DIOXIDE LEVEL 21 MEQ/L (21-32); CHLORIDE LEVEL 108 MEQ/L (98-107); CREATININE FOR GFR 1.09 MG/DL (0.70-1.30); GLOMERULAR FILTRATION RATE > 60.0 (>60); GLUCOSE, FASTING 132 MG/DL (70-100); POTASSIUM SERUM 3.8 MEQ/L (3.5-5.1); SODIUM LEVEL 140 MEQ/L (136-145); TOTAL PROTEIN 7.1 GM/DL (6.4-8.2)
[2021-12-12 15:02] LABS: LIPASE 116 U/L (73-393)
[2021-12-12] MEDS: GASTROGRAFIN SOLUTION 30ML PO SCH ×2 (16:25→16:26)
[2021-12-12 16:36] LABS: RSV AMPLIFICATION NEGATIVE (NEGATIVE)
[2021-12-12] MEDS ORDERED: ISOVUE-370 76% 100ML VIAL As Ordered ONE (17:46)
[2021-12-12] MEDS ORDERED: ERTAPENEM SODIUM 1 GM in NS MINI-BAG PLUS 50 ML IV ONE (19:30)
[2021-12-12] MEDS ORDERED: FENO160T10 PO (20:19)
[2021-12-12] MEDS ORDERED: BUPR150T12 PO (20:19)
[2021-12-12] MEDS ORDERED: ATOR80TA59 PO (20:19)
[2021-12-12] MEDS ORDERED: ONDANSETRON 4MG/2ML VIAL IV PRN (20:20)
[2021-12-12] MEDS ORDERED: HOME MED LIST COMPLETE! XX SCH (20:20)
[2021-12-12] MEDS: D5W/0.9% SODIUM CHLORIDE 1,000 ML IV SCH (20:44)
[2021-12-12 21:00] LABS: PARTIAL THROMBOPLASTIN TIME 32.7 SECONDS (25.9-37.0)
[2021-12-12] MEDS: MORPHINE 2 MG/ML 1ML VIAL IV PRN (21:03)
[2021-12-12 21:10] LABS: C REACTIVE PROTEIN QUANTITATIV 5.36 MG/DL (0.00-0.30); FERRITIN 473 NG/ML (26-388); NT-PRO BNP 5 PG/ML (<125)
[2021-12-12] MEDS ORDERED: COMBIVENT RESPIMAT 100-20MCG INHALER 4GM INH PRN (21:10)
[2021-12-12] MEDS ORDERED: FLUTICASONE PROP 0.05% NASAL SPRAY 16 GM (FLONASE) NARES PRN (21:10)
[2021-12-12 22:00] VITALS: BP 134/64
[2021-12-13] VITALS: BP 134/75
[2021-12-13] MEDS ORDERED: MORPHINE 2 MG/ML 1ML VIAL IV ONE
[2021-12-13] MEDS ORDERED: REMDESIVIR 200 MG in NS 250 ML IV ONE ×2
[2021-12-13] MEDS ORDERED: SODIUM CHLORIDE 0.9% INJ 10 ML SYR IV ONE (02:00)
[2021-12-13 04:00] VITALS: BP 123/72
[2021-12-13] MEDS: MORPHINE 2 MG/ML 1ML VIAL IV PRN ×2 (04:28→08:45)
[2021-12-13 05:03] LABS: BASO % 0.4 % (0.0-1.0); EOS % 0.4 % (0.0-3.0); HEMATOCRIT 35.9 % (42.0-52.0); HEMOGLOBIN 12.3 g/dl (13.5-17.5); LYMPH # 1.6 10^3/uL (1.5-5.0); LYMPH % 20.7 % (24.0-44.0); MEAN CORPUSCULAR HEMOGLOBIN 29.8 pg (27.0-33.0); MEAN CORPUSCULAR HGB CONC 34.3 g/dl (32.0-36.5); MEAN CORPUSCULAR VOLUME 86.9 fl (80.0-96.0); MONO # 0.7 10^3/uL (0.0-0.8); MONO % 8.5 % (2.0-8.0); NEUTROPHILS # 5.5 10^3/uL (1.5-8.5); NEUTROPHILS % 69.6 % (36.0-66.0); PLATELET COUNT, AUTOMATED 199 10^3/uL (150-450); RED BLOOD COUNT 4.13 10^6/uL (4.30-6.10); WHITE BLOOD COUNT 7.9 10^3/uL (4.0-10.0)
[2021-12-13 05:18] LABS: ALBUMIN 3.1 GM/DL (3.2-5.2); ALT/SGPT 31 U/L (12-78); BILIRUBIN,DIRECT 0.3 MG/DL (0.0-0.2); BILIRUBIN,TOTAL 0.4 MG/DL (0.2-1.0); BLOOD UREA NITROGEN 10 MG/DL (7-18); CALCIUM LEVEL 7.2 MG/DL (8.5-10.1); CARBON DIOXIDE LEVEL 23 MEQ/L (21-32); CHLORIDE LEVEL 109 MEQ/L (98-107); CREATININE FOR GFR 0.74 MG/DL (0.70-1.30); GLOMERULAR FILTRATION RATE > 60.0 (>60); GLUCOSE, FASTING 128 MG/DL (70-100); POTASSIUM SERUM 3.3 MEQ/L (3.5-5.1); SODIUM LEVEL 140 MEQ/L (136-145); TOTAL PROTEIN 6.6 GM/DL (6.4-8.2)
[2021-12-13] MEDS: D5W/0.9% SODIUM CHLORIDE 1,000 ML IV SCH ×3 (05:53→21:20)
[2021-12-13] MEDS ORDERED: KCL 10MEQ/100ML SWI (KRUN) 10 MEQ in IV 1 EA IV SCH (06:00)
[2021-12-13] MEDS ORDERED: metroNIDAZOLE 500 MG in IV 1 EA IV SCH (07:15)
[2021-12-13] MEDS: ENOXAPARIN 40MG/0.4ML SYRINGE (J1650 PER 10MG) SC SCH (07:18)
[2021-12-13] MEDS: PANTOPRAZOLE 40MG VIAL IV SCH (07:18)
[2021-12-13 08:00] VITALS: BP 115/63
[2021-12-13] MEDS: KCL 10MEQ/100ML SWI (KRUN) 10 MEQ in IV 1 EA IV SCH ×3 (08:45→12:12)
[2021-12-13] MEDS: MORPHINE 4 MG/ML 1ML VIAL/SYRINGE IV PRN ×4 (12:12→22:14)
[2021-12-13 12:24] VITALS: BP 121/69
[2021-12-13] MEDS ORDERED: ERTAPENEM SODIUM 1 GM in NS MINI-BAG PLUS 50 ML IV SCH (20:00)
[2021-12-13 22:00] VITALS: BP 116/75
[2021-12-13] MEDS: REMDESIVIR 100 MG in NS 250 ML IV SCH (23:14)
[2021-12-14] MEDS: SODIUM CHLORIDE 0.9% INJ 10 ML SYR IV SCH ×2 (00:18→23:44)
[2021-12-14] MEDS: MORPHINE 4 MG/ML 1ML VIAL/SYRINGE IV PRN ×6 (03:17→20:25)
[2021-12-14 06:00] VITALS: BP 113/70
[2021-12-14] MEDS: D5W/0.9% SODIUM CHLORIDE 1,000 ML IV SCH (06:18)
[2021-12-14 06:20] LABS: BASO % 0.5 % (0.0-1.0); EOS # 0.1 10^3/uL (0.0-0.5); EOS % 1.1 % (0.0-3.0); HEMATOCRIT 33.4 % (42.0-52.0); HEMOGLOBIN 10.9 g/dl (13.5-17.5); LYMPH # 1.9 10^3/uL (1.5-5.0); MEAN CORPUSCULAR HEMOGLOBIN 29.1 pg (27.0-33.0); MEAN CORPUSCULAR HGB CONC 32.6 g/dl (32.0-36.5); MEAN CORPUSCULAR VOLUME 89.1 fl (80.0-96.0); MONO # 0.6 10^3/uL (0.0-0.8); MONO % 9.4 % (2.0-8.0); NEUTROPHILS # 3.8 10^3/uL (1.5-8.5); NEUTROPHILS % 58.7 % (36.0-66.0); PLATELET COUNT, AUTOMATED 193 10^3/uL (150-450); RED BLOOD COUNT 3.75 10^6/uL (4.30-6.10); WHITE BLOOD COUNT 6.4 10^3/uL (4.0-10.0)
[2021-12-14 06:31] LABS: INR 1.06; PROTHROMBIN TIME 14.2 SECONDS (12.7-14.5)
[2021-12-14 06:32] LABS: PARTIAL THROMBOPLASTIN TIME 41.6 SECONDS (25.9-37.0)
[2021-12-14 06:58] LABS: ALBUMIN 2.8 GM/DL (3.2-5.2); ALT/SGPT 42 U/L (12-78); BILIRUBIN,DIRECT 0.3 MG/DL (0.0-0.2); BILIRUBIN,TOTAL 0.3 MG/DL (0.2-1.0); FERRITIN 471 NG/ML (26-388); LDH LACTATE DEHYDROGENASE 149 U/L (87-241); NT-PRO BNP 20 PG/ML (<125); TOTAL PROTEIN 6.3 GM/DL (6.4-8.2)
[2021-12-14 07:39] LABS: BLOOD UREA NITROGEN 7 MG/DL (7-18); CALCIUM LEVEL 7.4 MG/DL (8.5-10.1); CARBON DIOXIDE LEVEL 26 MEQ/L (21-32); CHLORIDE LEVEL 109 MEQ/L (98-107); CREATININE FOR GFR 0.63 MG/DL (0.70-1.30); GLOMERULAR FILTRATION RATE > 60.0 (>60); GLUCOSE, FASTING 112 MG/DL (70-100); POTASSIUM SERUM 3.5 MEQ/L (3.5-5.1); SODIUM LEVEL 142 MEQ/L (136-145)
[2021-12-14] MEDS: PANTOPRAZOLE 40MG VIAL IV SCH (09:42)
[2021-12-14] MEDS: ENOXAPARIN 40MG/0.4ML SYRINGE (J1650 PER 10MG) SC SCH (09:42)
[2021-12-14] MEDS: KCL 40MEQ IN D5/NS 1000ML 1,000 ML IV SCH ×2 (11:29→20:25)
[2021-12-14 12:00] VITALS: BP 122/69
[2021-12-14 19:42] VITALS: BP 121/71
[2021-12-14] MEDS: PIPERACILLIN/TAZOBACTAM SOD 4.5 GM in D5W MINI-BAG PLUS 50 ML IV SCH (20:26)
[2021-12-14] MEDS: REMDESIVIR 100 MG in NS 250 ML IV SCH (23:44)
[2021-12-15] VITALS (7 sets, daily range): BP systolic 109–132; BP diastolic 66–92; O2SAT 96–97
[2021-12-15] MEDS: PIPERACILLIN/TAZOBACTAM SOD 4.5 GM in D5W MINI-BAG PLUS 50 ML IV SCH ×4 (02:27→20:26)
[2021-12-15] MEDS: KCL 40MEQ IN D5/NS 1000ML 1,000 ML IV SCH ×2 (06:14→17:29)
[2021-12-15 06:26] LABS: BASO % 0.5 % (0.0-1.0); EOS # 0.1 10^3/uL (0.0-0.5); HEMATOCRIT 32.3 % (42.0-52.0); HEMOGLOBIN 10.9 g/dl (13.5-17.5); LYMPH # 1.8 10^3/uL (1.5-5.0); LYMPH % 27.1 % (24.0-44.0); MEAN CORPUSCULAR HEMOGLOBIN 30.3 pg (27.0-33.0); MEAN CORPUSCULAR HGB CONC 33.7 g/dl (32.0-36.5); MEAN CORPUSCULAR VOLUME 89.7 fl (80.0-96.0); MONO # 0.6 10^3/uL (0.0-0.8); MONO % 8.3 % (2.0-8.0); NEUTROPHILS # 4.1 10^3/uL (1.5-8.5); NEUTROPHILS % 61.5 % (36.0-66.0); PLATELET COUNT, AUTOMATED 207 10^3/uL (150-450); WHITE BLOOD COUNT 6.6 10^3/uL (4.0-10.0)
[2021-12-15 06:54] LABS: BLOOD UREA NITROGEN 5 MG/DL (7-18); CALCIUM LEVEL 7.7 MG/DL (8.5-10.1); CARBON DIOXIDE LEVEL 23 MEQ/L (21-32); CHLORIDE LEVEL 112 MEQ/L (98-107); CREATININE FOR GFR 0.76 MG/DL (0.70-1.30); GLOMERULAR FILTRATION RATE > 60.0 (>60); GLUCOSE, FASTING 108 MG/DL (70-100); POTASSIUM SERUM 3.8 MEQ/L (3.5-5.1); SODIUM LEVEL 143 MEQ/L (136-145)
[2021-12-15] MEDS: ENOXAPARIN 40MG/0.4ML SYRINGE (J1650 PER 10MG) SC SCH (08:13)
[2021-12-15] MEDS: PANTOPRAZOLE 40MG VIAL IV SCH (08:14)
[2021-12-16] VITALS (10 sets, daily range): BP systolic 119–128; BP diastolic 77–86; O2SAT 89–100
[2021-12-16] MEDS: REMDESIVIR 100 MG in NS 250 ML IV SCH ×2 (00:39→23:50)
[2021-12-16] MEDS: PIPERACILLIN/TAZOBACTAM SOD 4.5 GM in D5W MINI-BAG PLUS 50 ML IV SCH ×4 (02:11→20:02)
[2021-12-16] MEDS: SODIUM CHLORIDE 0.9% INJ 10 ML SYR IV SCH (02:12)
[2021-12-16] MEDS: KCL 40MEQ IN D5/NS 1000ML 1,000 ML IV SCH ×2 (06:24→13:00)
[2021-12-16 06:27] LABS: BASO % 0.5 % (0.0-1.0); EOS # 0.1 10^3/uL (0.0-0.5); EOS % 1.9 % (0.0-3.0); HEMOGLOBIN 11.1 g/dl (13.5-17.5); MEAN CORPUSCULAR HEMOGLOBIN 30.7 pg (27.0-33.0); MEAN CORPUSCULAR HGB CONC 34.7 g/dl (32.0-36.5); MEAN CORPUSCULAR VOLUME 88.4 fl (80.0-96.0); MONO # 0.5 10^3/uL (0.0-0.8); NEUTROPHILS # 3.7 10^3/uL (1.5-8.5); NEUTROPHILS % 58.1 % (36.0-66.0); PLATELET COUNT, AUTOMATED 264 10^3/uL (150-450); RED BLOOD COUNT 3.62 10^6/uL (4.30-6.10); WHITE BLOOD COUNT 6.4 10^3/uL (4.0-10.0)
[2021-12-16 06:58] LABS: ALBUMIN 2.9 GM/DL (3.2-5.2); ALT/SGPT 45 U/L (12-78); BILIRUBIN,DIRECT 0.1 MG/DL (0.0-0.2); BILIRUBIN,TOTAL 0.4 MG/DL (0.2-1.0); BLOOD UREA NITROGEN 5 MG/DL (7-18); CALCIUM LEVEL 7.3 MG/DL (8.5-10.1); CARBON DIOXIDE LEVEL 22 MEQ/L (21-32); CHLORIDE LEVEL 110 MEQ/L (98-107); CREATININE FOR GFR 0.62 MG/DL (0.70-1.30); GLOMERULAR FILTRATION RATE > 60.0 (>60); GLUCOSE, FASTING 97 MG/DL (70-100); POTASSIUM SERUM 4.1 MEQ/L (3.5-5.1); SODIUM LEVEL 141 MEQ/L (136-145); TOTAL PROTEIN 6.1 GM/DL (6.4-8.2)
[2021-12-16] MEDS: ENOXAPARIN 40MG/0.4ML SYRINGE (J1650 PER 10MG) SC SCH (07:59)
[2021-12-16] MEDS: GASTROGRAFIN SOLUTION 30ML PO SCH ×2 (07:59→08:32)
[2021-12-16] MEDS: PANTOPRAZOLE 40MG VIAL IV SCH (07:59)
[2021-12-16] MEDS ORDERED: ISOVUE-370 76% 100ML VIAL As Ordered ONE (09:27)
[2021-12-17] MEDS: PIPERACILLIN/TAZOBACTAM SOD 4.5 GM in D5W MINI-BAG PLUS 50 ML IV SCH ×2 (01:08→08:19)
[2021-12-17 05:55] LABS: BASO % 0.6 % (0.0-1.0); EOS # 0.2 10^3/uL (0.0-0.5); EOS % 2.3 % (0.0-3.0); HEMATOCRIT 32.9 % (42.0-52.0); HEMOGLOBIN 11.3 g/dl (13.5-17.5); LYMPH # 2.1 10^3/uL (1.5-5.0); LYMPH % 30.2 % (24.0-44.0); MEAN CORPUSCULAR HEMOGLOBIN 30.2 pg (27.0-33.0); MEAN CORPUSCULAR HGB CONC 34.3 g/dl (32.0-36.5); MONO # 0.6 10^3/uL (0.0-0.8); MONO % 8.5 % (2.0-8.0); NEUTROPHILS # 4.1 10^3/uL (1.5-8.5); NEUTROPHILS % 57.7 % (36.0-66.0); PLATELET COUNT, AUTOMATED 343 10^3/uL (150-450); RED BLOOD COUNT 3.74 10^6/uL (4.30-6.10); WHITE BLOOD COUNT 7.1 10^3/uL (4.0-10.0)
[2021-12-17 06:00] VITALS: BP 103/61
[2021-12-17 06:12] LABS: BLOOD UREA NITROGEN 6 MG/DL (7-18); CALCIUM LEVEL 8.4 MG/DL (8.5-10.1); CARBON DIOXIDE LEVEL 21 MEQ/L (21-32); CHLORIDE LEVEL 115 MEQ/L (98-107); CREATININE FOR GFR 0.74 MG/DL (0.70-1.30); GLOMERULAR FILTRATION RATE > 60.0 (>60); GLUCOSE, FASTING 148 MG/DL (70-100); POTASSIUM SERUM 4.1 MEQ/L (3.5-5.1); SODIUM LEVEL 144 MEQ/L (136-145)
[2021-12-17] MEDS: ENOXAPARIN 40MG/0.4ML SYRINGE (J1650 PER 10MG) SC SCH (08:19)
[2021-12-17] MEDS ORDERED: PANTOPRAZOLE 40MG TAB (PROTONIX) PO SCH (09:00)
[2021-12-17] MEDS ORDERED: CIPR-249 PO (09:40)
[2021-12-17] MEDS ORDERED: METR375C3 PO (09:40)
[2021-12-17] MEDS ORDERED: PROB250C PO (09:41)
== END 2021-12-17 11:28 | disposition home or self-care (01) | DRG 244 ==
LOC: M ED 13:32 → M ED INP 20:16 → ENRESERV 21:30 → M ICU 22:10 → M 4MAIN 12-13 12:30
PROVIDERS: ADMIT Internal Medicine; ATTEND Internal Medicine
PROC: XW033E5 Introduction of Remdesivir Anti-infective into Peripheral Vein, Percutaneous Approach, New Technology Group 5 (ICD-10-PCS; principal; 2021-12-12)
DX: K57.10 Diverticulosis of small intestine without perforation or abscess without bleeding (principal); U07.1 COVID-19; I10 Essential (primary) hypertension; E78.5 Hyperlipidemia, unspecified; F32.A Depression, unspecified; E87.6 Hypokalemia; F17.290 Nicotine dependence, other tobacco product, uncomplicated; F41.9 Anxiety disorder, unspecified; Z90.49 Acquired absence of other specified parts of digestive tract; Z91.19 Patient's noncompliance with other medical treatment and regimen; G47.33 Obstructive sleep apnea (adult) (pediatric); Z79.899 Other long term (current) drug therapy

== ENCOUNTER → 2022-03-11 | Outpatient (CLI) | payer OTHER ==
[~2022-03-11] MED LIST changes: +ATOR80TA59 PO; +BUPR150T12 PO; +CIPR-249 PO; +FENO160T10 PO; +METR375C3 PO; +PROB250C PO
== END ==
LOC: M LABSMTC 09:54
PROVIDERS: ATTEND Anesthesiology
DX: Z01.818 Encounter for other preprocedural examination (principal); Z11.52 Encounter for screening for COVID-19

== ENCOUNTER 2022-03-16 10:16 | Day surgery (SDC) | payer OTHER ==
[~2022-03-16] VITALS: Ht 172.7 cm; Wt 92.4 kg
[~2022-03-16 10:16] MED LIST changes: +LIDOCAINE 2% 100MG/5ML SDV (FOR ANES.) As Ordered ONE; +NS 1,000 ML IV ONE; +propofoL 200 MG/20 ML VIAL As Ordered ONE
[2022-03-16] MEDS ORDERED: propofoL 200 MG/20 ML VIAL As Ordered ONE (12:37)
[2022-03-16 13:07] VITALS: BP 154/87
== END 2022-03-16 13:08 | disposition home or self-care (01) ==
LOC: M OPP 10:16
PROVIDERS: ATTEND Surgery
DX: Z12.11 Encounter for screening for malignant neoplasm of colon (principal); D12.7 Benign neoplasm of rectosigmoid junction; K63.5 Polyp of colon; K57.30 Diverticulosis of large intestine without perforation or abscess without bleeding; Z98.0 Intestinal bypass and anastomosis status; Z79.02 Long term (current) use of antithrombotics/antiplatelets; Z79.899 Other long term (current) drug therapy; Z99.89 Dependence on other enabling machines and devices; G47.30 Sleep apnea, unspecified; I10 Essential (primary) hypertension; E78.5 Hyperlipidemia, unspecified; F32.9 Major depressive disorder, single episode, unspecified; F41.9 Anxiety disorder, unspecified; Z90.49 Acquired absence of other specified parts of digestive tract; F17.290 Nicotine dependence, other tobacco product, uncomplicated

== ENCOUNTER 2022-11-09 18:39 | Emergency (ER) | payer BC, MEDICAID ==
[~2022-11-09] VITALS: Ht 172.7 cm; Wt 86.7 kg
[~2022-11-09 18:39] MED LIST changes: -LIDOCAINE 2% 100MG/5ML SDV (FOR ANES.) As Ordered ONE; -NS 1,000 ML IV ONE; -propofoL 200 MG/20 ML VIAL As Ordered ONE
[2022-11-09 20:17] LABS: BASO # 0.1 10^3/uL (0.0-0.2); BASO % 0.7 % (0.0-1.0); EOS # 0.1 10^3/uL (0.0-0.5); EOS % 0.8 % (0.0-3.0); HEMOGLOBIN 16.2 g/dl (13.5-17.5); LYMPH # 2.8 10^3/uL (1.5-5.0); LYMPH % 23.8 % (24.0-44.0); MEAN CORPUSCULAR HEMOGLOBIN 30.5 pg (27.0-33.0); MEAN CORPUSCULAR VOLUME 84.6 fl (80.0-96.0); MONO # 1.3 10^3/uL (0.0-0.8); NEUTROPHILS # 7.5 10^3/uL (1.5-8.5); NEUTROPHILS % 63.2 % (36.0-66.0); PLATELET COUNT, AUTOMATED 281 10^3/uL (150-450); RED BLOOD COUNT 5.32 10^6/uL (4.30-6.10); WHITE BLOOD COUNT 11.9 10^3/uL (4.0-10.0)
[2022-11-09 20:41] LABS: LIPASE 35 U/L (12-53)
[2022-11-09 20:44] LABS: ALBUMIN 4.3 G/DL (3.2-5.2); ALKALINE PHOSPHATASE 62 U/L (46-116); ALT/SGPT 43 U/L (7.0-40); AST/SGOT 28 U/L (<34); BILIRUBIN,DIRECT 0.3 MG/DL (<0.4); BILIRUBIN,TOTAL 0.7 MG/DL (0.3-1.2); BLOOD UREA NITROGEN 23 MG/DL (9-23); CALCIUM LEVEL 7.8 MG/DL (8.5-10.1); CARBON DIOXIDE LEVEL 19 MMOL/L (20-31); CHLORIDE LEVEL 109 MMOL/L (98-107); GLOMERULAR FILTRATION RATE > 60.0 (>60); GLUCOSE, FASTING 123 MG/DL (60-100); POTASSIUM SERUM 3.2 MMOL/L (3.5-5.1); SODIUM LEVEL 143 MMOL/L (136-145); TOTAL PROTEIN 7.3 G/DL (5.7-8.2)
[2022-11-09 23:27] VITALS: BP 123/81
== END 2022-11-10 02:34 | disposition left against medical advice (07) ==
LOC: M ED 18:39
DX: Z53.21 Procedure and treatment not carried out due to patient leaving prior to being seen by health care provider (principal)

== ENCOUNTER → 2023-06-02 | Outpatient (CLI) | payer BC, MEDICAID | LOC: M SLEEP 20:00 | PROVIDERS: ATTEND Physician Assistant | DX: G47.33 Obstructive sleep apnea (adult) (pediatric) (principal) ==

== ENCOUNTER → 2023-08-26 | Outpatient (CLI) | payer BC, MEDICAID | LOC: M RAD 10:18 | PROVIDERS: ATTEND Physician Assistant | DX: Z12.2 Encounter for screening for malignant neoplasm of respiratory organs (principal); Z87.891 Personal history of nicotine dependence; R91.8 Other nonspecific abnormal finding of lung field ==

== ENCOUNTER → 2023-10-06 | Outpatient (CLI) | payer BC, MEDICAID ==
[~2023-10-06] MED LIST changes: +METHACHOLINE KIT (6 VIAL.NEB PREMIX) INH ONE
== END ==
LOC: M CARPUL 08:35
PROVIDERS: ATTEND Physician Assistant
DX: R94.2 Abnormal results of pulmonary function studies (principal)

== ENCOUNTER → 2024-01-16 | Outpatient (CLI) | payer BC, MEDICAID ==
[~2024-01-16] MED LIST changes: -METHACHOLINE KIT (6 VIAL.NEB PREMIX) INH ONE
[2024-01-16 19:28] LABS: BASO # 0.1 10^3/uL (0.0-0.2); EOS # 0.1 10^3/uL (0.0-0.5); EOS % 1.3 % (0.0-3.0); HEMATOCRIT 45.6 % (42.0-52.0); LYMPH # 2.6 10^3/uL (1.5-5.0); LYMPH % 27.3 % (24.0-44.0); MEAN CORPUSCULAR HEMOGLOBIN 30.5 pg (27.0-33.0); MEAN CORPUSCULAR HGB CONC 35.1 g/dl (32.0-36.5); MEAN CORPUSCULAR VOLUME 86.9 fl (80.0-96.0); MONO # 0.8 10^3/uL (0.0-0.8); MONO % 8.3 % (2.0-8.0); NEUTROPHILS # 5.9 10^3/uL (1.5-8.5); NEUTROPHILS % 61.8 % (36.0-66.0); PLATELET COUNT, AUTOMATED 267 10^3/uL (150-450); RED BLOOD COUNT 5.25 10^6/uL (4.30-6.10); WHITE BLOOD COUNT 9.6 10^3/uL (4.0-10.0)
[2024-01-16 19:41] LABS: ERYTHROCYTE SEDIMENTATION RATE 3 mm/hr (0-20)
[2024-01-16 19:55] LABS: C REACTIVE PROTEIN QUANTITATIV < 0.40 MG/DL (<1.0)
[2024-01-16 19:57] LABS: ALBUMIN 4.4 G/DL (3.2-5.2); ALKALINE PHOSPHATASE 75 U/L (46-116); ALT/SGPT 39 U/L (7.0-40); AST/SGOT 19 U/L (<34); BILIRUBIN,TOTAL 0.8 MG/DL (0.3-1.2); BLOOD UREA NITROGEN 12 MG/DL (9-23); CALCIUM LEVEL 9.1 MG/DL (8.5-10.1); CARBON DIOXIDE LEVEL 25 MMOL/L (20-31); CHLORIDE LEVEL 106 MMOL/L (98-107); CREATININE FOR GFR 0.79 MG/DL (0.70-1.30); GLOMERULAR FILTRATION RATE > 60.0 (>56); GLUCOSE, FASTING 105 MG/DL (60-100); MAGNESIUM LEVEL 1.4 MG/DL (1.8-2.4); POTASSIUM SERUM 3.5 MMOL/L (3.5-5.1); SODIUM LEVEL 141 MMOL/L (136-145)
[2024-01-16 19:59] LABS: FOLATE 14.8 NG/ML (>5.4)
[2024-01-16 20:00] LABS: TOTAL 25(OH) VITAMIN D 15.7 NG/ML (20.0-100.0)
[2024-01-16 20:01] LABS: THYROID STIMULATING HORMONE 1.645 uIU/ML (0.55-4.78)
[2024-01-16 20:02] LABS: VITAMIN B12 LEVEL 558 PG/ML (211-911)
[2024-01-16 20:03] LABS: FREE T4 0.92 NG/DL (0.89-1.76)
== END ==
LOC: M PLALAB 13:58
PROVIDERS: ATTEND Nurse Practitioner Family
DX: R51.9 Headache, unspecified (principal)

== ENCOUNTER → 2024-01-18 | Outpatient (CLI) | payer BC, MEDICAID ==
[~2024-01-18] MED LIST changes: +ISOVUE-370 76% 100ML VIAL As Ordered ONE; +MAGN400T2 PO; +MECL-209 PO; +PSEU30TA87 PO; +[UNRECOGNIZED DRUG - CODE]
== END ==
LOC: M RAD 07:48
PROVIDERS: ATTEND Nurse Practitioner Family
DX: R51.9 Headache, unspecified (principal)

== ENCOUNTER 2024-01-19 15:39 | Emergency (ER) | payer BC, MEDICAID ==
[~2024-01-19] VITALS: Ht 172.7 cm; Wt 92.1 kg
[~2024-01-19 15:39] MED LIST changes: -ISOVUE-370 76% 100ML VIAL As Ordered ONE; -MAGN400T2 PO; -MECL-209 PO; -PSEU30TA87 PO; -[UNRECOGNIZED DRUG - CODE]
[2024-01-19 18:02] LABS: BASO # 0.1 10^3/uL (0.0-0.2); EOS # 0.1 10^3/uL (0.0-0.5); EOS % 1.2 % (0.0-3.0); HEMATOCRIT 46.4 % (42.0-52.0); HEMOGLOBIN 16.5 g/dl (13.5-17.5); LYMPH # 2.5 10^3/uL (1.5-5.0); MEAN CORPUSCULAR HEMOGLOBIN 30.7 pg (27.0-33.0); MEAN CORPUSCULAR HGB CONC 35.6 g/dl (32.0-36.5); MEAN CORPUSCULAR VOLUME 86.2 fl (80.0-96.0); MONO # 0.6 10^3/uL (0.0-0.8); MONO % 5.9 % (2.0-8.0); NEUTROPHILS % 67.4 % (36.0-66.0); PLATELET COUNT, AUTOMATED 234 10^3/uL (150-450); RED BLOOD COUNT 5.38 10^6/uL (4.30-6.10); WHITE BLOOD COUNT 10.4 10^3/uL (4.0-10.0)
[2024-01-19 18:23] LABS: ALBUMIN 4.4 G/DL (3.2-5.2); ALKALINE PHOSPHATASE 76 U/L (46-116); ALT/SGPT 33 U/L (7.0-40); AST/SGOT 14 U/L (<34); BILIRUBIN,TOTAL 0.5 MG/DL (0.3-1.2); BLOOD UREA NITROGEN 15 MG/DL (9-23); CALCIUM LEVEL 9.9 MG/DL (8.5-10.1); CARBON DIOXIDE LEVEL 25 MMOL/L (20-31); CHLORIDE LEVEL 105 MMOL/L (98-107); CREATININE FOR GFR 0.64 MG/DL (0.70-1.30); GLOMERULAR FILTRATION RATE > 60.0 (>56); GLUCOSE, FASTING 96 MG/DL (60-100); POTASSIUM SERUM 4.1 MMOL/L (3.5-5.1); SODIUM LEVEL 139 MMOL/L (136-145); TOTAL PROTEIN 7.2 G/DL (5.7-8.2)
[2024-01-19 19:36] LABS: MAGNESIUM LEVEL 1.4 MG/DL (1.8-2.4)
[2024-01-19 19:47] LABS: INR 1.02; PARTIAL THROMBOPLASTIN TIME 25.6 SECONDS (24.8-34.2); PROTHROMBIN TIME 13.1 SECONDS (12.5-14.5)
[2024-01-19] MEDS: PSEUDOEPHEDRINE 30 MG TAB PO ONE (20:20)
[2024-01-19] MEDS: MECLIZINE 25 MG TABLET PO ONE (20:20)
[2024-01-19] MEDS: FLUTICASONE PROP 0.05% NASAL SPRAY 16 GM (FLONASE) NARES SCH (20:25)
[2024-01-19] MEDS ORDERED: PSEU30TA87 PO (21:40)
[2024-01-19] MEDS ORDERED: [UNRECOGNIZED DRUG - CODE] (21:40)
[2024-01-19] MEDS ORDERED: MECL-209 PO (21:40)
[2024-01-19] MEDS ORDERED: MAGN400T2 PO (22:07)
[2024-01-19 22:16] VITALS: BP 140/88; TEMP 97.6; O2SAT 98
[2024-01-19] MEDS: MAGNESIUM OXIDE 400MG TAB (MAG-OX) PO ONE (22:18)
[2024-01-20] MEDS ORDERED: FLUTICASONE PROP 0.05% NASAL SPRAY 16 GM (FLONASE) NARES SCH (09:00)
== END 2024-01-19 22:23 | disposition home or self-care (01) ==
LOC: M ED 15:39
DX: K62.5 Hemorrhage of anus and rectum (principal); R42 Dizziness and giddiness; H69.92 Unspecified Eustachian tube disorder, left ear; I10 Essential (primary) hypertension; E78.5 Hyperlipidemia, unspecified; G47.33 Obstructive sleep apnea (adult) (pediatric); Z79.899 Other long term (current) drug therapy

== ENCOUNTER → 2024-05-14 | Outpatient (CLI) | payer BC, MEDICAID ==
[~2024-05-14] MED LIST changes: +MAGN400T2 PO; +MECL-209 PO; +PSEU30TA87 PO; +[UNRECOGNIZED DRUG - CODE]
[2024-05-14 15:20] LABS: ALBUMIN 4.3 G/DL (3.2-5.2); ALKALINE PHOSPHATASE 83 U/L (40-129); ALT/SGPT 44 U/L (7.0-40); AST/SGOT 18 U/L (<34); BILIRUBIN,TOTAL 0.7 MG/DL (0.3-1.2); BLOOD UREA NITROGEN 15 MG/DL (9-23); CALCIUM LEVEL 10.2 MG/DL (8.5-10.1); CARBON DIOXIDE LEVEL 27 MMOL/L (20-31); CHLORIDE LEVEL 105 MMOL/L (98-107); CHOLESTEROL LEVEL 163 MG/DL (<200); CHOLESTEROL RISK RATIO 4.89 (<5); CREATININE FOR GFR 0.78 MG/DL (0.70-1.30); GLOMERULAR FILTRATION RATE > 60.0 (>56); GLUCOSE, FASTING 96 MG/DL (60-100); HDL CHOLESTEROL 33.3 MG/DL (>40); LDL CHOLESTEROL 80.1 MG/DL (<100); NON-HDL-C 129.7 MG/DL; POTASSIUM SERUM 4.7 MMOL/L (3.5-5.1); SODIUM LEVEL 141 MMOL/L (136-145); TOTAL PROTEIN 7.4 G/DL (5.7-8.2); TRIGLYCERIDES LEVEL 248 MG/DL (<150)
== END ==
LOC: M PLALAB 10:59
PROVIDERS: ATTEND Nurse Practitioner Family
DX: I10 Essential (primary) hypertension (principal)